=== PATIENT | female | born 1990 | race Caucasian/White ===

== ENCOUNTER 2016-06-16 09:11 | Emergency (ER) | payer SELFPAY ==
[2016-06-16 10:57] LABS: APPEARANCE,URINE SLIGHTLY-CLOUDY; BILIRUBIN,URINE NEGATIVE (NEGATIVE); GLUCOSE, URINE NEGATIVE (NEGATIVE); KETONES,URINE NEGATIVE (NEGATIVE); LEUKOCYTE ESTERASE,URINE NEGATIVE (NEGATIVE); NITRITE,URINE POSITIVE (NEGATIVE); PROTEIN,URINE NEGATIVE (NEGATIVE); UROBILINOGEN,URINE NEGATIVE mg/dL (<2.0)
--- NOTE | 2016-06-16 11:08 | ER Document Report ---
ED General - General Chief Complaint: Lower Abdominal Pain Stated Complaint: SIDE PAIN Time seen by provider: 10:55 Mode of Arrival: Ambulatory Information source: Patient Notes: 26-year-old female with right lower quadrant pain and right flank pain along with dysuria urgency frequency beginning this morning. She denies vaginal bleeding or discharge. She did not denies fever, chills, nausea, vomiting, cough, shortness of breath, left-sided pain. She reports a prior history of symptoms like this. Physical Exam: General: Alert, appears well. HEENT: Normocephalic. Atraumatic. PERRLA. Extraocular movements intact. Oropharynx clear. Neck: Supple. Non-tender. Respiratory: No respiratory distress. Clear and equal breath sounds bilaterally. Cardiovascular: Regular rate and rhythm. Abdominal: Normal Inspection. Soft, trace right lower quadrant and suprapubic tenderness nondistended no guarding rebound rigidity no referred pain no distension. Normal Bowel Sounds. Back: Non-tender. No deformity or step off. Extremities: Moves all four extremities. Upper extremities: Normal inspection. Non-tender. Normal color. Normal ROM. Normal temperature. Lower extremities: Normal inspection. Non-tender. No edema. Normal color. Normal ROM. Normal temperature. Neurological: Speech clear mentation normal. Psychological: Normal affect. Normal Mood. Skin: Warm. Dry. Normal color. TRAVEL OUTSIDE OF THE [place] IN LAST 30 DAYS: No - Related Data Allergies/Adverse Reactions: No Known Allergies Allergy (Verified 06/16/16 09:26) Past Medical History - Social History Smoking Status: Never Smoker Chew tobacco use (# tins/day): No Frequency of alcohol use: Social Drug Abuse: None Family History: Reviewed & Not Pertinent Patient has suicidal ideation: No Patient has homicidal ideation: No Renal/ Medical History: Denies: Hx Peritoneal Dialysis Past Surgical History: Reports: Hx Orthopedic Surgery Review of Systems - Review of Systems Constitutional: denies: Chills, Fever EENT: denies: Ear pain, Throat pain Cardiovascular: denies: Chest pain Respiratory: denies: Cough, Short of breath Gastrointestinal: See HPI. denies: Diarrhea Genitourinary: See HPI Female Genitourinary: denies: Musculoskeletal: See HPI Skin: denies: Rash Neurological/Psychological: denies: Weakness, Numbness Physical Exam - Vital signs Vitals: Temp Pulse Resp BP Pulse Ox 97.7 F 70 14 110/64 100 06/16/16 09:15 06/16/16 09:15 06/16/16 09:15 06/16/16 09:15 06/16/16 09:15 Course - Re-evaluation Re-evalutation: 06/16/16 11:05 Patient be covered with antibiotics for UTI. We'll provide with number for OB/ [employer] for follow-up as needed. - Vital Signs Vital signs: Temp Pulse Resp BP Pulse Ox 97.7 F 70 14 110/64 100 06/16/16 09:15 06/16/16 09:15 06/16/16 09:15 06/16/16 09:15 06/16/16 09:15 - Laboratory Laboratory results interpreted by me: 06/16/16 10:25 Urine Nitrite POSITIVE H 06/16/16 11:05 Urinalysis results reviewed. Patient is not Discharge - Discharge Clinical Impression: UTI (urinary tract infection) Qualifiers: Urinary tract infection type: site unspecified Hematuria presence: without hematuria Qualified Code(s): N39.0 - Urinary tract infection, site not specified Condition: Stable Disposition: HOME, SELF-CARE Instructions: Urinary Tract Infection ([facility]) Prescriptions: Cephalexin Monohydrate [Keflex 500 mg Capsule] 500 mg PO BID #20 capsule Referrals: MARY MARAVILLA MD [ACTIVE STAFF] - Follow up as needed
[2016-06-16 11:41] VITALS: BP 130/86
== END 2016-06-16 11:39 | disposition home or self-care (01) ==
LOC: ER 09:11
DX: N39.0 Urinary tract infection, site not specified (principal); R10.30 Lower abdominal pain, unspecified; R30.0 Dysuria; R39.15 Urgency of urination; R35.0 Frequency of micturition
CPT/HCPCS: 81001; 81025; 99284

== ENCOUNTER 2019-02-13 17:49 | Emergency (ER) | payer SELFPAY ==
--- NOTE | 2019-02-13 18:11 | ER Document Report ---
ED Medical Screen (RME) - General Chief Complaint: Anxiety Stated Complaint: ANXIETY Time Seen by Provider: 02/13/19 18:06 Mode of Arrival: Ambulatory Information source: Patient Notes: Patient states that she feels as though she has been having panic attacks about every other day for the past 1 to 2 months. Patient states sometimes these episodes will wake her up from a sleep. Patient states she will have difficulty breathing, palpitations and be diaphoretic. Patient presently denies any symptoms at this time. I have greeted and performed a rapid initial assessment of this patient. A comprehensive ED assessment and evaluation of the patient, analysis of test results and completion of the medical decision making process will be conducted by additional ED providers. TRAVEL OUTSIDE OF THE [place] IN LAST 30 DAYS: No - Related Data Allergies/Adverse Reactions: No Known Allergies Allergy (Verified 02/13/19 18:02) Past Medical History - Social History Chew tobacco use (# tins/day): No Frequency of alcohol use: Occasional Drug Abuse: None Renal/ Medical History: Denies: Hx Peritoneal Dialysis Past Surgical History: Reports: Hx Orthopedic Surgery Physical Exam - Vital signs Vitals: Temp Pulse Resp BP Pulse Ox 98.6 F 92 17 131/91 H 98 02/13/19 17:59 02/13/19 17:59 02/13/19 17:59 02/13/19 17:59 02/13/19 17:59 - Cardiovascular Rhythm: Regular. No: Tachycardia Heart sounds: S1 appreciated, S2 appreciated Course - Vital Signs Vital signs: Temp Pulse Resp BP Pulse Ox 98.6 F 92 17 131/91 H 98 02/13/19 17:59 02/13/19 17:59 02/13/19 17:59 02/13/19 17:59 02/13/19 17:59
--- NOTE | 2019-02-13 18:34 | ER Document Report ---
ED General - General Chief Complaint: Anxiety Stated Complaint: ANXIETY Time Seen by Provider: 02/13/19 18:06 Mode of Arrival: Ambulatory TRAVEL OUTSIDE OF THE [place] IN LAST 30 DAYS: No - HPI Patient complains to provider of: anxiety Notes: 28 y/o presenting to ED for evaluation of panic attacks ongoing intermittently for a couple of months when present, she has hand spasms and feels like she cannot breathe she states she was on a daily medication when in high school for anxiety but now has no insurance and is not on any medication she denies SI/HI/hallucinations she denies substance abuse she denies any known sources of stress in her life she has no symptoms now - Related Data Allergies/Adverse Reactions: No Known Allergies Allergy (Verified 02/13/19 18:02) Past Medical History - General Information source: Patient - Social History Smoking Status: Never Smoker Chew tobacco use (# tins/day): No Frequency of alcohol use: Occasional Drug Abuse: None Family History: Reviewed & Not Pertinent Patient has suicidal ideation: No Patient has homicidal ideation: No Renal/ Medical History: Denies: Hx Peritoneal Dialysis Past Surgical History: Reports: Hx Orthopedic Surgery Review of Systems - Review of Systems Constitutional: No symptoms reported EENT: No symptoms reported Cardiovascular: No symptoms reported Respiratory: No symptoms reported Gastrointestinal: No symptoms reported Genitourinary: No symptoms reported Female Genitourinary: No symptoms reported Musculoskeletal: No symptoms reported Skin: No symptoms reported Hematologic/Lymphatic: No symptoms reported Neurological/Psychological: Anxiety. denies: Depression Physical Exam - Vital signs Vitals: Temp Pulse Resp BP Pulse Ox 98.6 F 92 17 131/91 H 98 02/13/19 17:59 02/13/19 17:59 02/13/19 17:59 02/13/19 17:59 02/13/19 17:59 Interpretation: Normal - General General appearance: Appears well, Alert - HEENT Head: Normocephalic, Atraumatic Eyes: Normal Pupils: PERRL - Respiratory Respiratory status: No respiratory distress Chest status: Nontender Breath sounds: Normal Chest palpation: Normal - Cardiovascular Rhythm: Regular Heart sounds: Normal auscultation Murmur: No - Abdominal Inspection: Normal Distension: No distension Bowel sounds: Normal Tenderness: Nontender Organomegaly: No organomegaly - Back Back: Normal, Nontender - Extremities General upper extremity: Normal inspection, Nontender, Normal color, Normal ROM, Normal temperature General lower extremity: Normal inspection, Nontender, Normal color, Normal ROM, Normal temperature, Normal weight bearing. No: Robyn's sign - Neurological Neuro grossly intact: Yes Cognition: Normal Orientation: AAOx4 Jacob Coma Scale Eye Opening: Spontaneous Jacob Coma Scale Verbal: Oriented Jacob Coma Scale Motor: Obeys Commands [place] Coma Scale Total: 15 Speech: Normal Motor strength normal: LUE, RUE, LLE, RLE Sensory: Normal - Psychological Associated symptoms: Normal affect, Anxious. No: Auditory hallucinations, Irritable, Labile, Paranoid, Tactile hallucinations, Tearful, Unable to sleep, Uncooperative, Visual hallucinations - Skin Skin Temperature: Warm Skin Moisture: Dry Skin Color: Normal Course - Re-evaluation Re-evalutation: 02/13/19 18:43 patient presents for evaluation of intermittent panic attacks no current symptoms APC in triage ordered screening labs after they result (if normal), will discharge w/ outpt mental health resources provided to patient by mental health staff 02/13/19 20:18 patient requesting discharge TSH is still pending she represents no eminent danger to herself or others and is safe for outpt follow up with mental health resources - Vital Signs Vital signs: Temp Pulse Resp BP Pulse Ox 98.6 F 92 17 131/91 H 98 02/13/19 17:59 02/13/19 17:59 02/13/19 17:59 02/13/19 17:59 02/13/19 17:59 - Laboratory Result Diagrams: 02/13/19 18:28 02/13/19 18:28 Laboratory results interpreted by me: 02/13/19 02/13/19 18:28 18:28 RBC 5.45 H Carbon Dioxide 21 L Total Protein 8.5 H - EKG Interpretation by Me Additional EKG results interpreted by me: 02/13/19 20:19 rate of 79, no ST segment changes, NSR Discharge - Discharge Clinical Impression: Anxiety, Elevated blood pressure reading Condition: Stable Disposition: HOME, SELF-CARE Instructions: Anxiety ([facility]) Additional Instructions: follow up with outpatient mental health resources as provided return to the ED with worsening Forms: Elevated Blood Pressure Referrals: WILMA PERSAUD MD [HONORARY] - Follow up as needed
[2019-02-13 18:38] LABS: ABSOLUTE EOSINOPHILS # (AUTO) 0.1 10^3/uL (0.0-0.6); ABSOLUTE LYMPHOCYTES (AUTO) 3.1 10^3/uL (0.5-4.7); ABSOLUTE MONOCYTES (AUTO) 0.8 10^3/uL (0.1-1.4); ABSOLUTE NEUT (AUTO) 6.2 10^3/uL (1.7-8.2); BASOPHILS % (AUTO) 0.4 % (0-2); EOSINOPHILS % (AUTO) 0.5 % (0-6); HEMOGLOBIN 15.3 g/dL (12.0-15.5); LYMPHOCYTES % (AUTO) 30.1 % (13-45); MEAN CORPUSCULAR HGB CONC 33.9 g/dL (32.0-36.0); MEAN CORPUSCULAR VOLUME 83 fl (80-97); MONOCYTES % (AUTO) 7.5 % (3-13); PLATELET COUNT 262 10^3/uL (150-450); RED BLOOD COUNT 5.45 10^6/uL (3.72-5.28); RED CELL DISTRIBUTION WIDTH 13.7 % (11.5-14.0); SEGMENTED NEUTROPHILS % (AUTO) 61.5 % (42-78); TOTAL CELLS COUNTED % (AUTO) 100 %; WHITE BLOOD COUNT 10.2 10^3/uL (4.0-10.5)
[2019-02-13 18:55] LABS: ALBUMIN 4.9 g/dL (3.5-5.0); ALKALINE PHOSPHATASE 59 U/L (38-126); ANION GAP 16 (5-19); ASPARTATE AMINO TRANSFERASE 22 U/L (14-36); BILIRUBIN,DIRECT 0.1 mg/dL (0.0-0.4); BILIRUBIN,TOTAL 0.3 mg/dL (0.2-1.3); BLOOD UREA NITROGEN 7 mg/dL (7-20); CALCIUM 9.7 mg/dL (8.4-10.2); CARBON DIOXIDE 21 mmol/L (22-30); CHLORIDE 106 mmol/L (98-107); GLUCOSE 84 mg/dL (75-110); POTASSIUM 4.1 mmol/L (3.6-5.0); TOTAL PROTEIN 8.5 g/dL (6.3-8.2)
[2019-02-13 20:30] VITALS: BP 107/83
--- NOTE | 2019-02-13 21:01 | EKG REPORT ---
SEVERITY:- BORDERLINE ECG - SINUS RHYTHM NONSPECIFIC IVCD : Confirmed by: Darwin Barcenas MD 13-Feb-2019 21:00:47
== END 2019-02-13 20:30 | disposition home or self-care (01) ==
LOC: ER 17:49
DX: F41.9 Anxiety disorder, unspecified (principal); R03.0 Elevated blood-pressure reading, without diagnosis of hypertension
CPT/HCPCS: 36415; 80053; 84443; 84703; 85025; 93005; 93010; 99283